=== PATIENT | female | born 1995 | race American Indian/Alaskan Native ===

== ENCOUNTER 2017-01-10 11:47 | Emergency (ER) | payer MEDICAID ==
[2017-01-10 12:06] VITALS: BP 121/76
--- NOTE | 2017-01-10 15:22 | Emergency Department Report ---
- General Chief Complaint: Upper Respiratory Infection Stated Complaint: COUGH/RUNNY NOSE/SORE THROAT/SORE STOMACH Time Seen by Provider: 01/10/17 14:52 Source: patient Mode of arrival: Ambulatory Limitations: No Limitations - History of Present Illness Initial Comments: This is a 21-year-old female well-nourished with nontoxic or ill in appearance that presents with congestion, sore throat, and productive cough for the past week. Patient stated had a dry cough and cold symptoms for the past month that has developed into a productive cough or congestion. Patient also stated has subject off fever and chills. Patient stated the productive cough as a green mucus-like. Patient agrees to sick contact (daughter). Patient denies any chest pain, shortness of breath, abdominal pain, nausea vomiting, headache, or numbness or tingling laceration extremities. Patient describes sore throat as stabbing/aching with a level of a 10 out of 10. Patient denies any drug allergies. MD Complaint: cough, sore throat -: Gradual, week(s) (1) Severity: mild Severity scale (0 -10): 10 Quality: sharp, aching Consistency: constant Improves With: nothing Context: sick contacts (daughter) Associated Symptoms: fever, chills, nasal congestion, sore throat, cough. denies: myalgias, diaphoresis, headache, rhinorrhea, stiff neck, chest pain, shortness of breath, abdominal pain, nausea, vomiting, diarrhea, dysuria, rash, confusion, right sweats, weight loss, epistaxis, hoarseness, ear pain - Related Data Previous Rx's Medication Instructions Recorded Last Taken Type Amoxicillin [Trimox CAP] 500 mg PO Q8H 10 Days 01/10/17 Unknown Rx Allergies Allergy/AdvReac Type Severity Reaction Status Date / Time No Known Allergies Allergy Verified 07/01/16 11:56 ED Review of Systems ROS: Stated complaint: COUGH/RUNNY NOSE/SORE THROAT/SORE STOMACH Other details as noted in HPI Constitutional: denies: chills, fever Eyes: denies: eye pain, eye discharge, vision change ENT: congestion. denies: ear pain, throat pain, dental pain, hearing loss, epistaxis Respiratory: cough. denies: orthopnea, shortness of breath, SOB with exertion, SOB at rest, stridor, wheezing Cardiovascular: denies: chest pain, palpitations, dyspnea on exertion, orthopnea , edema, syncope, paroxysmal nocturnal dyspnea Endocrine: no symptoms reported Gastrointestinal: denies: abdominal pain, nausea, diarrhea, constipation, hematemesis, melena, hematochezia Genitourinary: denies: urgency, dysuria, discharge Musculoskeletal: denies: back pain, joint swelling, arthralgia Skin: denies: rash, lesions Neurological: denies: headache, weakness, numbness, paresthesias, confusion, abnormal gait, vertigo Psychiatric: denies: anxiety, depression Hematological/Lymphatic: denies: easy bleeding, easy bruising ED Past Medical Hx - Past Medical History Previous Medical History?: No Hx Hypertension: No Hx Congestive Heart Failure: No Hx Diabetes: No Hx Deep Vein Thrombosis: No Hx Renal Disease: No Hx Sickle Cell Disease: No Hx Seizures: No Hx Asthma: No Hx COPD: No Hx HIV: No - Surgical History Past Surgical History?: No - Social History Smoking Status: Current Every Day Smoker Substance Use Type: None - Medications Home Medications: Home Medications Medication Instructions Recorded Confirmed Last Taken Type Amoxicillin [Trimox CAP] 500 mg PO Q8H 10 Days 01/10/17 Unknown Rx ED Physical Exam - General Limitations: No Limitations General appearance: alert, in no apparent distress - Head Head exam: Present: atraumatic, normocephalic - Eye Eye exam: Present: normal appearance, PERRL, EOMI. Absent: scleral icterus, conjunctival injection, nystagmus, periorbital swelling, periorbital tenderness - ENT ENT exam: Present: normal exam, normal orophraynx, mucous membranes moist, TM's normal bilaterally, normal external ear exam - Expanded ENT Exam Expanded Ear exam: Present: normal external inspection Mouth exam: Present: normal external inspection. Absent: drooling, trismus, muffled voice Teeth exam: Present: normal inspection Throat exam: Positive: normal inspection, tonsillar erythema, tonsillomegaly (2+ ), tonsillar exudate. Negative: R peritonsillar mass, L peritonsillar mass - Neck Neck exam: Present: normal inspection, full ROM. Absent: tenderness, meningismus - Respiratory Respiratory exam: Present: normal lung sounds bilaterally. Absent: respiratory distress, wheezes, rales, rhonchi, stridor, chest wall tenderness, accessory muscle use, decreased breath sounds, prolonged expiratory - Cardiovascular Cardiovascular Exam: Present: regular rate, normal rhythm. Absent: bradycardia , tachycardia, systolic murmur, diastolic murmur, rubs, gallop - GI/Abdominal GI/Abdominal exam: Present: soft, normal bowel sounds. Absent: distended, tenderness - Extremities Exam Extremities exam: Present: normal inspection, full ROM, normal capillary refill. Absent: tenderness, pedal edema, joint swelling, calf tenderness - Back Exam Back exam: Present: normal inspection, full ROM. Absent: tenderness, CVA tenderness (R), CVA tenderness (L), muscle spasm, paraspinal tenderness, vertebral tenderness, rash noted - Neurological Exam Neurological exam: Present: alert, oriented X3, CN II-XII intact, normal gait - Psychiatric Psychiatric exam: Present: normal affect, normal mood - Skin Skin exam: Present: warm, dry, intact, normal color. Absent: rash ED Course Vital Signs 01/10/17 12:04 Temperature 98.4 F Pulse Rate 95 H Respiratory 16 Rate Blood Pressure 121/76 O2 Sat by Pulse 100 Oximetry ED Medical Decision Making - Medical Decision Making ED course: This is a 21-year-old female that presents with exudative tonsillitis and upper respiratory infection. 1-after physical exam, due to patient having a productive cough of green sputum production, congestion, and exudative tonsillitis, patient received amoxicillin 500 mg by mouth for 10 days. 2- patient was instructed to follow-up with her primary care doctor in 3-5 days or if symptoms worsen such as chest pain, shortness of breath, difficulty swallowing, drooling, changes in her voice, fever or chills to report back to emergency room. 3- patient was instructed to increase fluids and keep well-hydrated. 4- at time time of discharge, the patient does not seem toxic or ill in appearance. No acute signs of distress noted. Patient agrees to discharge treatment plan of care. No further questions noted by the patient. Critical care attestation.: If time is entered above; I have spent that time in minutes in the direct care of this critically ill patient, excluding procedure time. ED Disposition Clinical Impression: Tonsillitis with exudate Upper respiratory infection Qualifiers: URI type: unspecified URI Qualified Code(s): J06.9 - Acute upper respiratory infection, unspecified Disposition: DISCHARGED TO HOME OR SELFCARE Is pt being admited?: No Does the pt Need Aspirin: No Condition: Stable Instructions: Amoxicillin (By mouth), Tonsillitis (ED), Upper Respiratory Infection (ED) Additional Instructions: Follow-up with her primary care doctor in 3-5 days or if symptoms worsen such as chest pain, shortness of breath, difficulty swallowing, drooling, changes in her voice, fever or chills to report back to emergency room. Take full course advised as prescribed. Prescriptions: Amoxicillin [Trimox CAP] 500 mg PO Q8H 10 Days Referrals: PRIMARY CARE,MD [Primary Care Provider] - 3-5 Days [facility] [Outside] - 3-5 Days [facility] [Outside] - 3-5 Days Forms: Work/School Release Form(ED)
== END 2017-01-10 15:38 | disposition home or self-care (01) ==
LOC: ED 11:47
DX: J03.90 Acute tonsillitis, unspecified (principal); J06.9 Acute upper respiratory infection, unspecified; F17.200 Nicotine dependence, unspecified, uncomplicated
CPT/HCPCS: 99282

== ENCOUNTER 2019-09-08 11:26 | Emergency (ER) | payer SELFPAY ==
--- NOTE | 2019-09-08 14:50 | Emergency Department Report ---
<TAVARES KWAN - Last Filed: 09/08/19 15:33> ED General Adult HPI - General Chief complaint: Extremity Problem,Nontraumatic Stated complaint: NUMB IN BOTH LEGS Time Seen by Provider: 09/08/19 14:41 - Related Data Previous Rx's Medication Instructions Recorded Last Taken Type Amoxicillin [Trimox CAP] 500 mg PO Q8H 10 Days capsule 01/10/17 Unknown Rx predniSONE [Deltasone] 50 mg PO QDAY #5 tab 05/12/19 Unknown Rx traMADoL [Ultram] 50 mg PO Q6HR PRN #20 tablet 05/12/19 Unknown Rx Fluconazole [Diflucan TAB] 200 mg PO QDAY #1 tablet 09/08/19 Unknown Rx Allergies Allergy/AdvReac Type Severity Reaction Status Date / Time No Known Allergies Allergy Verified 09/08/19 13:03 ED Past Medical Hx - Medications Home Medications: Home Medications Medication Instructions Recorded Confirmed Last Taken Type Amoxicillin [Trimox CAP] 500 mg PO Q8H 10 Days capsule 01/10/17 Unknown Rx predniSONE [Deltasone] 50 mg PO QDAY #5 tab 05/12/19 Unknown Rx traMADoL [Ultram] 50 mg PO Q6HR PRN #20 tablet 05/12/19 Unknown Rx Fluconazole [Diflucan TAB] 200 mg PO QDAY #1 tablet 09/08/19 Unknown Rx ED Medical Decision Making - Lab Data Result diagrams: 09/08/19 14:50 09/08/19 14:50 - Medical Decision Making I evaluated Ms. Lares. For 3 weeks she has had right leg weakness numbness from her waist to her extremities. She's also had left facial twitching with blurry vision. Differential diagnosis includes atypical migraine, multiple sclerosis, SLE. Patient is currently neurologically intact. She was able to walk across the room in brisk fashion. I recommended a neurological follow-up. ED Disposition Clinical Impression: Double vision with both eyes open, Numbness and tingling of both legs, Yeast infection Disposition: - TO HOME OR SELFCARE Condition: Stable Instructions: Paresthesia (ED), Diplopia (ED) Additional Instructions: Rest, increase oral hydration, drink at least 6-8 cups of water daily. Follow up with your doctor or [facility]. Also follow up with Dr Ivey Neurologist. Prescriptions: Fluconazole [Diflucan TAB] 200 mg PO QDAY #1 tablet Referrals: PRIMARY CARE, [Primary Care Provider] - 3-5 Days EDDIE IVEY MD [Staff Physician] - 3-5 Days <TERRAEDGARDO CASTILLO - Last Filed: 09/08/19 17:58> ED General Adult HPI - General Source: patient Mode of arrival: Ambulatory Limitations: No Limitations - History of Present Illness Initial comments: This is a 24-year-old female she presents to the ER with multiple complaints. She is complaining of left facial twitching for 2 weeks .states that she has been feeling numbness from her waist down and that her balance and coordination is off. When she ambulates she states she doesn't feel her feet touching the ground. She is also complaining of lower back pain blurred and double vision all the symptoms have been going on for 2 weeks. She denies fever chills nausea vomiting no recent travels, no known fall or trauma She denies any possibility of but her last menstrual period was 2017. PMH of herniated disk not taking any medications. Severity scale (0 -10): 0 Associated Symptoms: denies: confusion, chest pain, loss of appetite, shortness of breath Treatments Prior to Arrival: none ED Review of Systems ROS: Stated complaint: NUMB IN BOTH LEGS Other details as noted in HPI Comment: All other systems reviewed and negative Constitutional: denies: chills, fever Respiratory: denies: cough, shortness of breath Cardiovascular: denies: chest pain Endocrine: denies: excessive sweating, intolerance to cold Neurological: numbness, paresthesias, other (blurred vision, double vision. Left face twitching. 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 Absent: tenderness - Respiratory Respiratory exam: Present: normal lung sounds bilaterally. Absent: respiratory distress, wheezes - Cardiovascular Cardiovascular Exam: Present: regular rate, normal heart sounds - GI/Abdominal GI/Abdominal exam: Present: soft. Absent: distended, tenderness - Rectal Rectal exam: Absent: deferred - Extremities Exam Extremities exam: Present: normal inspection, full ROM - Back Exam Back exam: Present: normal inspection - Neurological Exam Neurological exam: Present: alert, oriented X3, CN II-XII intact, normal gait - Psychiatric Psychiatric exam: Present: anxious - Skin Skin exam: Present: warm, dry, intact ED Course Vital Signs 09/08/19 12:16 Temperature 98.2 F Pulse Rate 85 Respiratory 13 Rate Blood Pressure 117/78 [Left] O2 Sat by Pulse 100 Oximetry ED Medical Decision Making - Lab Data Result diagrams: 09/08/19 14:50 09/08/19 14:50 - Radiology Data Radiology results: report reviewed CT head IMPRESSION: 1. No focal mass, hemorrhage, hydrocephalus, or acute, large territorial infarct CXR no acute findings - Medical Decision Making All findings reviewed with Mrs. Lares she has a CAT scan of brain with no acute findings chest x-ray no acute findings. Blood work no acute findings her urine is negative for infection but positive for yeast. Recommend neurological follow-up for this patient and she is given a referral to Dr. Ivey Neurology. Critical Care Time: No Critical care attestation.: If time is entered above; I have spent that time in minutes in the direct care of this critically ill patient, excluding procedure time. ED Disposition Is pt being admited?: No Does the pt Need Aspirin: No
[2019-09-08 15:00] LABS: Hematocrit 31.9 % (30.3-42.9); Mean Corpuscular HGB Conc 31 % (30-34); Mean Corpuscular Volume 72 fl (79-97); Platelet Count 327 K/mm3 (140-440); Red Blood Count 4.46 M/mm3 (3.65-5.03)
[2019-09-08 15:13] LABS: INR 1.09 (0.87-1.13); Red Cell Distribution Width 24.1 % (13.2-15.2)
[2019-09-08 15:14] LABS: Partial Thromboplastin Time 31.5 Sec. (24.2-36.6)
[2019-09-08 15:21] LABS: Alanine Aminotransferase 11 units/L (7-56); Albumin 4.3 g/dL (3.9-5); BUN/Creatinine Ratio 18; Blood Urea Nitrogen 7 mg/dL (7-17); Calcium 9.8 mg/dL (8.4-10.2); Hemolysis Index 7
--- NOTE | 2019-09-08 15:26 | Cat Scan Report ---
CT head/brain wo con INDICATION / CLINICAL INFORMATION: 24 years Female; blurred and double vision, decrease coordination. TECHNIQUE: Routine CT head without contrast. All CT scans at this location are performed using CT dos e reduction for ALARA by means of automated exposure control. COMPARISON: None. FINDINGS: BRAIN / INTRACRANIAL CONTENTS: There is loss of johansen/white differentiation large portion of the right [employer]ICIAN territory in the occipital lobe, certainly involving calcarine cortex. There is also decreased a ttenuation in the splenium of the corpus callosum rightward of midline. Branch [employer]ICIAN infarct suggested on the right. No signs of hemorrhagic transformation. Perivascular space is seen in the inferior gangliocapsular region on the left, which should be of no clinical significance. Otherwise, no acute hemorrhage, mass effect, midline shift, hydrocephalus, or acute, large territori al infarct. No chronic infarct or atrophy appreciated. No significant white matter abnormality. CRANIOCERVICAL JUNCTION: No significant abnormality. ORBITS: No significant abnormality of visualized orbits. There is a focal dehiscence of the lamina pa pyracea on the right-of no clinical significance. SINUSES / MASTOIDS: No significant abnormality the visualized paranasal sinuses or mastoid air cells. ADDITIONAL FINDINGS: Mild atherosclerotic disease is seen in the anterior and posterior circulation. IMPRESSION: 1. Acute/subacute ischemia in the right [employer]CH[employer]ICIAN territory as described above. No signs of hemorrhagic tra nsformation. This exam was performed as part of a code stroke protocol. The exam was completed on 09/08/2019 2:09 P M. The exam was reviewed at 2:[address] Gonzalez was notified at 2:18 PM. Signer Name: Missael Alcantara MD, III Signed: 09/08/2019 3:22 PM Workstation Name: [id number]
[2019-09-08 15:27] LABS: Bilirubin,Urine NEG (Negative); Blood,Urine NEG (Negative); Color,Urine Yellow (Yellow); Hyaline Casts,Urine 3 /LPF; Mucus,Urine 3+ /HPF; Urobilinogen,Urine < 2.0 mg/dL (<2.0)
[2019-09-08 15:43] LABS: Erythrocyte Sedimentation Rate 80 mm/Hr (0-20)
[2019-09-08 15:56] LABS: INR 1.13 (0.87-1.13); Partial Thromboplastin Time 30.9 Sec. (24.2-36.6)
--- NOTE | 2019-09-08 16:40 | XRay Report ---
CHEST 1 VIEW 09/08/2019 4:21 PM INDICATION / CLINICAL INFORMATION: stroke. COMPARISON: None available. FINDINGS: SUPPORT DEVICES: None. HEART / MEDIASTINUM: No significant abnormality. LUNGS / PLEURA: No significant pulmonary or pleural abnormality. No pneumothorax. ADDITIONAL FINDINGS: No significant additional findings. IMPRESSION: 1. No acute findings. Signer Name: Riaz Abel MD Signed: 09/08/2019 4:35 PM Workstation Name: [id number]
--- NOTE | 2019-09-08 16:53 | Cat Scan Report ---
CT head/brain wo con INDICATION / CLINICAL INFORMATION: 24 years Female; blurry vision, double vision off balance. TECHNIQUE: Routine CT head without contrast. All CT scans at this location are performed using CT dos e reduction for ALARA by means of automated exposure control. COMPARISON: None. FINDINGS: BRAIN / INTRACRANIAL CONTENTS: No acute hemorrhage, mass effect, midline shift, hydrocephalus, or acu te, large territorial infarct. No chronic infarct or atrophy appreciated. No significant white matter abnormality. CRANIOCERVICAL JUNCTION: No significant abnormality. ORBITS: No significant abnormality of visualized orbits. SINUSES / MASTOIDS: There is mucosal thickening and/or polypoid disease along the medial aspect of th e left maxillary antrum. ADDITIONAL FINDINGS: None. IMPRESSION: 1. No focal mass, hemorrhage, hydrocephalus, or acute, large territorial infarct. Signer Name: Missael Alcantara MD, III Signed: 09/08/2019 4:48 PM Workstation Name: [id number]
[2019-09-08 18:19] VITALS: BP 134/91
== END 2019-09-08 18:18 | disposition home or self-care (01) ==
LOC: ED 11:26
DX: H53.2 Diplopia (principal); R20.0 Anesthesia of skin; B37.9 Candidiasis, unspecified
CPT/HCPCS: 36415; 70450; 71045; 80053; 81001; 84484; 84703; 85027; 85610; 85652; 85730